=== PATIENT | female | born 1995 | race Two or more races ===

== ENCOUNTER 2024-11-26 13:47 | Observation (INO) | payer MEDICAID ==
--- NOTE | 2024-11-26 14:32 | DVH ---
BIOPHYSICAL PROFILE HISTORY: gdma1 Comparison Study: None TECHNIQUE: Multiple real-time grayscale sonographic images through the gravid uterus of the fetus wi th duplex Doppler color flow and M-mode spectral analysis FINDINGS: BIOPHYSICAL PROFILE: breathing score: 2 movement score: 2 tone score: 2 Quantitative DELFIN score: 2 (DELFIN: 18.2 Cm.) Total score: 8 The cervix is not visualized Single live fetus in cephalic presentation. heart rate beats per minute. Grade 1, anterior placenta without previa or abruption IMPRESSION: Biophysical profile score: 8
--- NOTE | 2024-11-26 15:53 | DVHDS2 ---
Physician Discharge Progress N Final Diagnosis: GDM Operations or Procedures: Operations or Procedures NST,SONO Condition on Discharge: Good Disposition: Home Discharge Instructions: Diet: Consistent carbohydrate Activity: No Restrictions, As Tolerated Follow Up/Referral: [facility] on Tuesday[facility] at 1400 for NST/BPP Medications: NA Follow Up Care: Specialist: 3D Discharge Statement: "Patient was advised to return to the ER or call 911 if any headaches, dizz iness, shortness of breath, chest pain, abdominal pain, bleeding, fevers, or worsening of medical condition. Patient was counseled about treatment plan, medications, possible side effects, patientverbalized understanding. All questions were answered to the best of my ability. This discharge took greater then 30 minutes in planning, reviewing documentation, counseling the patient, and discussing with other team members." Visit Coding OBGYN Date of Service: Nov 26, 2024 Billing Provider: JOEY YI DO NUCLEAR MEDICAL TECH Common Visit Codes: 93726-[id number] INP/OBS CARE (HIGH) NUCLEAR MEDICAL TECH Procedure Codes: 53434-32- NON-STRESS TEST JOEY YI DO Nov 26, 2024 15:53
== END 2024-11-26 15:27 | disposition home or self-care (01) ==
LOC: UNDOADMOB 13:47 → LDRP 13:47 → UNDODISOB 15:27
PROVIDERS: ADMIT Obstetrics & Gynecology; ATTEND Obstetrics & Gynecology
DX: O24.419 Gestational diabetes mellitus in pregnancy, unspecified control (principal); Z98.890 Other specified postprocedural states; Z79.899 Other long term (current) drug therapy; Z3A.34 34 weeks gestation of pregnancy
CPT/HCPCS: 59025; 76819; 81002; 82948; 82962; 94760; G0378

== ENCOUNTER 2024-12-03 10:21 | Observation (INO) | payer MEDICAID ==
--- NOTE | 2024-12-03 15:53 | DVH ---
BIOPHYSICAL PROFILE HISTORY: gdma1 TECHNIQUE: Multiple transabdominal real-time grayscale sonographic images through the gravid uterus of the fetus with duplex Doppler color flow and M-mode spectral analysis FINDINGS: BIOPHYSICAL PROFILE: breathing score: 2 movement score: 2 tone score: 2 Quantitative DELFIN score: 2 (DELFIN: 14.2 Cm.) Total score: 8/8 The cervix not measured Single live fetus in cephalic presentation. heart rate 141 beats per minute. Anterior Grade 2 placenta without previa or abruption Single live fetus at 35 weeks 6 days Biophysical profile score 8/8 corresponding to an GONZALEZ of 01/01/2025 Estimated weight not measured g IMPRESSION: 1. Biophysical profile score: 8/8 2. Possible nuchal cord.
--- NOTE | 2024-12-03 23:20 | DVHDS2 ---
Discharge Summary Date of Admission Dec 03, 2024 at 14:24 Date of Discharge: Dec 03, 2024 Admitting Diagnosis GDM A1 Wounds: 35 and 6 days Labs/Diagnostic Data: Laboratory Results Test 12/03/24 14:52 POC Glucose 74 mg/dl (70-106) Brief Hx & Hospital Course: NST ultrasound Consults/Reason for consult NST ultrasound Operations or Procedures None Condition at Discharge: Good Final Diagnosis/Problems List 35 6/7 GDM A1 Discharge Disposition: Home Discharge Instruct/Medications Diet: Consistent carbohydrate Activity: No Restrictions, As Tolerated Activity comment: Kick Discharge Statement: "Patient was advised to return to the ER or call 911 if any headaches, dizziness, shortness of breath, chest pain, abdominal pain, bleeding, fevers, or worsening of medical condition. Patient was counseled about treatment plan, medications, possible side effects, patientverbalized understanding. All questions were answered to the best of my ability. This discharge took greater then 30 minutes in planning, reviewing documentation, counseling the patient, and discussing with other team members." ASSESSMENT ASSESSMENT Assessment Visit Coding OBGYN Date of Service: Dec 03, 2024 Billing Provider: SANDRA REILLY DO PATROL POLICE SERGEANT Common Visit Codes: 91624-MDP/OBS SAME DATE (MOD), 67085-DAE/OBS SAME DATE (HIGH), 33885-RCC/OBS DISCH DAY <30MIN PATROL POLICE SERGEANT Procedure Codes: 97442-80- NON-STRESS TEST SANDRA REILLY DO Dec 03, 2024 23:20
== END 2024-12-03 15:57 | disposition home or self-care (01) ==
LOC: UNDOADMOB 14:24 → LDRP 14:24 → UNDODISOB 15:57
PROVIDERS: ADMIT Obstetrics & Gynecology; ATTEND Obstetrics & Gynecology
DX: O24.419 Gestational diabetes mellitus in pregnancy, unspecified control (principal); Z98.890 Other specified postprocedural states; Z79.899 Other long term (current) drug therapy; Z3A.35 35 weeks gestation of pregnancy
CPT/HCPCS: 59025; 76819; 82948; 82962; 94760; G0378

== ENCOUNTER 2024-12-10 06:47 | Observation (INO) | payer MEDICAID ==
--- NOTE | 2024-12-10 15:57 | DVH ---
BIOPHYSICAL PROFILE HISTORY: GDMA1 TECHNIQUE: Multiple transabdominal real-time grayscale sonographic images through the gravid uterus of the fetus with duplex Doppler color flow and M-mode spectral analysis FINDINGS: BIOPHYSICAL PROFILE: breathing score: 2 movement score: 2 tone score: 2 Quantitative DELFIN score: 17.66 (DELFIN: 5.26 Cm.) Total score: 8/8 The cervix Single live fetus in presentation. heart rate 136 beats per minute. Anterior Grade 2 placenta without previa or abruption Single live fetus at 36 weeks 6 days Biophysical profile score 8/8 corresponding to an GONZALEZ of 01/01/2025 Estimated weight calculi g IMPRESSION: 1. Biophysical profile score: 8/8
--- NOTE | 2024-12-11 02:44 | DVHDS2 ---
Discharge Summary Date of Admission December 10, 2024 at 15:00 Date of Discharge: December 10, 2024 Admitting Diagnosis 36 wks GDM A2 Brief Hx & Hospital Course: NST US reassuring Condition at Discharge: Good Final Diagnosis/Problems List same Discharge Disposition: Home Discharge Instruct/Medications Diet: Consistent carbohydrate Activity: Light activity Activity comment: kick counts labor precautions Follow Up/Referral: as scheduled Discharge Statement: "Patient was advised to return to the ER or call 911 if any headaches, dizziness, shortness of breath, chest pain, abdominal pain, bleeding, fevers, or worsening of medical condition. Patient was counseled about treatment plan, medications, possible side effects, patientverbalized understanding. All questions were answered to the best of my ability. This discharge took greater then 30 minutes in planning, reviewing documentation, counseling the patient, and discussing with other team members." ASSESSMENT ASSESSMENT Assessment Visit Coding OBGYN Date of Service: December 10, 2024 Billing Provider: SANDRA REILLY DO PRINTING MACHINE OPERATOR Common Visit Codes: 37250-JPM/OBS SAME DATE (LOW), 28265-WMS/OBS SAME DATE (MOD), 45380-UXL/OBS SAME DATE (HIGH) PRINTING MACHINE OPERATOR Procedure Codes: 01475-92- NON-STRESS TEST SANDRA REILLY DO December 11, 2024 02:44
== END 2024-12-10 16:21 | disposition home or self-care (01) ==
LOC: LDRP 15:00 → UNDOADMOB 15:00 → LDRP 15:09 → UNDODISOB 16:21
PROVIDERS: ADMIT Obstetrics & Gynecology; ATTEND Obstetrics & Gynecology
DX: O24.419 Gestational diabetes mellitus in pregnancy, unspecified control (principal); Z98.890 Other specified postprocedural states; Z79.899 Other long term (current) drug therapy; Z3A.36 36 weeks gestation of pregnancy
CPT/HCPCS: 59025; 76819; 81002; 82948; G0378

== ENCOUNTER 2024-12-17 10:19 | Inpatient (IN) | payer MEDICAID ==
[~2024-12-17] VITALS: Ht 157.5 cm; Wt 81.6 kg
[2024-12-18] MEDS ORDERED: PENICILLIN G POT 5MIL/D5 50ML 50 ML IV ONE (01:30)
[2024-12-18] MEDS ORDERED: NALBUPHINE HCL 10 MG/1ml INJECTION IV PRN (01:30)
[2024-12-18] MEDS ORDERED: LIDOCAINE 2%HCL (LOCAL ANESTH.) INJ 20ML MDV IJ PRN (01:30)
[2024-12-18 01:53] LABS: Basophils # (auto) 0.1 10 ^3/uL (0-0.2); Basophils % (auto) 0.9 % (0.0-2.0); Eosinophils # (auto) 0.1 10 ^3/uL (0-0.8); Eosinophils % (auto) 1.2 % (0.0-7.0); Hematocrit 35.1 % (36.0-46.0); Hemoglobin 11.8 g/dL (12.2-16.2); Lymphocytes # (auto) 1.8 10 ^3/uL (0.4-5.4); Lymphocytes % (auto) 29.3 % (10.0-50.0); Mean Corpuscular Hemoglobin 30.2 pg (28.0-32.0); Mean Corpuscular Hgb Conc. 33.5 g/dL (32.0-36.0); Mean Corpuscular Volume 90.1 fL (80.0-100.0); Monocytes # (auto) 0.5 10 ^3/uL (0-1.3); Monocytes % (auto) 8.6 % (0.0-12.0); Neutrophils # (auto) 3.7 10 ^3/uL (1.6-8.6); Nucleated Red Blood Cells % 0.1 %; Platelet Count (auto) 194 10^3/uL (140-450); Red Cell Distribution Width 15.4 % (11.8-14.3); White Blood Cell 6.1 10^3/uL (4.4-10.8)
[2024-12-18 02:04] LABS: Urine Bacteria FEW /hpf (None Seen); Urine Blood 1+ /uL (Negative); Urine Clarity Turbid (Clear); Urine Color Yellow (Yellow); Urine Mucus FEW (None Seen); Urine Protein, UAD 1+ (Negative); Urine Specific Gravity 1.036 (1.001-1.035); Urine Squamous Epithelial Cell MANY /hpf (<5); Urine Urobilinogen 3 mg/dL (Negative); Urine WBC 2 /HPF (0-5)
[2024-12-18 02:07] LABS: INR 0.89 (0.9-1.15); Partial Thromboplastin Time 26.9 SEC (24.5-34.5); Prothrombin Time 9.5 sec (9.3-11.8)
[2024-12-18 02:08] LABS: Barbiturate Scree,Urine Neg (NEGATIVE)
[2024-12-18 02:09] LABS: Amphetamine Screen, Urine Neg (NEGATIVE); Benzodiazephine Screen, Urine Neg (NEGATIVE); Cannabinoid Screen, Urine Neg (NEGATIVE); Cocaine Screen, Urine Neg (NEGATIVE); Opiate Scree,Urine Neg (NEGATIVE); Phencyclidine Screen, Urine Neg (NEGATIVE)
[2024-12-18 02:11] LABS: Alanine Aminotransferase 12 U/L (7-40); Anion Gap 11 (5-15); Aspartate Aminotransferase 22 U/L (13-40); BUN/Creatinine Ratio 15.8 (10.0-20.0); Blood Urea Nitrogen 9 mg/dL (9-23); Glucose 88 mg/dL (74-106); Potassium 3.9 mmol/L (3.5-5.1); Sodium 138 mmol/L (136-145); Total Protein 6.8 g/dL (5.7-8.2)
[2024-12-18 02:12] LABS: Bilirubin, Total 0.3 mg/dL (0.2-1.0)
[2024-12-18 02:16] LABS: Alkaline Phosphatase 134 U/L (46-116); Carbon Dioxide 19 mmol/L (20-31); Chloride 108 mmol/L (98-107)
[2024-12-18] MEDS: NALOXONE HCL 0.4 MG/ML VIAL IV ONE (02:45)
[2024-12-18] MEDS: ePHEDrine SULFATE 50 MG/ML AMP IV ONE (02:45)
[2024-12-18] MEDS: PHISODERM TOP SOLN 240ML BTL TOP PRN (02:58)
[2024-12-18] MEDS: WITCH HAZEL-GLYCERIN PAD TOP PRN (02:58)
[2024-12-18] MEDS: DERMOPLAST 60ML BOTTLE TOP PRN (02:58)
[2024-12-18] MEDS ORDERED: LACT. RINGERS/OXYTOCIN 20UNITS 1,000 ML IV SCH (03:00)
[2024-12-18] MEDS: fentaNYL CITRATE 100 MCG/2 ML VL IV ONE (03:52)
[2024-12-18] MEDS: LACTATED RINGER'S 1,000 ML IV SCH (03:53)
[2024-12-18] MEDS: ROPIVACAINE HCL 200 ML ONE (03:53)
--- NOTE | 2024-12-18 03:54 | EPIDURAL ---
Anesthesia Procedural Note - Epidural Informed consent obtained?: Yes Medication Administered: Fentanyl 100 mcg Sterile prept drape: Yes Spinal level of insertion: L4-L5 Test dose of lidocaine & Epine: Negative Infusion started: Yes Start time: 03:08 End time: 03:28 Procedure description Procedure description: Called for labor epidural. History taken, chart reviewed, patient examined at 0308 (BP150/90 HR 90 spO2 99). Patient is , here in spontaneous labor, requesting epidural. Informed consent for CSE obtained. Sitting position, sterile prep and drape. Time out done at 0312. L4-5 space infiltrated with 1% lido. Epidural needle placed with PO at 6cm. 25G spinal needle +clear CSF at 0318. 15mcg fentanyl given IT (BP 126/81 HR 92 spO2 99). Epidural catheter secured at 11cm. Aspiration and test dose (1.5% lido with epi) negative at 0320 (BP 133/82 HR 85 spO2 99). 85mcg fentanyl given via epidural (BP 135/86 HR 81 spO2 98). Patient reports pain relief. 0.2% ropivacaine infusion started at 0328 (BP 128/72 HR 82 spO2 99). Patient has SROM while lying back down. Will follow as needed. NIGEL GRACIA MD December 18, 2024 03:54
[2024-12-18] MEDS: LACT. RINGERS/OXYTOCIN 20UNITS 500 ML IV ONE ×2 (05:14→05:41)
[2024-12-18] MEDS ORDERED: PENICILLIN G POTASSIUM 2,500,000 UNITS in D5W 5% 50 ML IV SCH (05:30)
--- NOTE | 2024-12-18 05:40 | LDN2 ---
Labor and Delivery Note Date 12/18/24 Age 29 2 Para 2 AB n/a EDC 01/01/2025 EGA 38.0 weeks Diagnosis Active labor then A1 GDM Vaginal Delivery: VTX Vacuum Assisted: No Placenta: Spontaneous Sex: Male Weight Pending Apgars 8/9 Nuchal Cord Transected: No Amniotic Fluid: Meconium Stained, Thin Anesthesia Epidural anesthesia Episiotomy: No Extension: No Repaired with 2-0 Chromic suture EBL QBL: 300 mL Labs Blood Bank 12/18/24 01:34: Blood Type O NEGATIVE Complications n/a Conditions Stable Shoe Handler Dr. Beck Comments/Significant Med Nicol At 0456 this 29yo now delivered a viable Male infant by w/ APGARS 8/9. LOP. placed skin to skin on pts chest. Cord clamped and cut after pulsation ceased. Cord blood sent. Intact 3-vessel cord placenta delivered spontaneously, Richard. Pitocin IV bolus started. Placenta sent to pathology. Patient had epidural anesthesia. Cervix/vagina inspected (intact) and second degree perineal laceration present which was repaired with 2-0 Chromic suture. Rectal mucosa and sphincter intact. Rectal exam performed, WNL, not involved. Fundus at U, firm, midline, and light lochia. QBL 300ml. VSS. Count correct x2. Patient to care and baby to couplet care, both stable. Visit Coding OBGYN Date of Service: December 18, 2024 Billing Provider: SANDRA REILLY DO CUSTODIAL AIDE Common Visit Codes: PROCEDURE ONLY CUSTODIAL AIDE Procedure Codes: 51257-CRU DEL INCLUDING GRACIA WOODY MDWF December 18, 2024 05:40
[2024-12-18] MEDS ORDERED: ONDANSETRON ODT 4 MG TAB PO PRN (05:45)
--- NOTE | 2024-12-18 05:54 | DVHHP2 ---
OB CC & HPI Date Date of Admission: December 18, 2024 Patient Identification: : 2 Para: 1 EDC: January 01, 2025 EGA: 38.0 weeks Chief Complaints: Reason for admission: active labor Admission Nurse Assessment Rev: Yes History of Present Complaints 29yo IUP @ 38 weeks presents to labor and delivery for active labor. Pt reports painful contractions every 2 minutes and is requesting an epidural. Pt denies LOF/VB/DURANT/visual disturbances, and endorses + movement. PNC: routine care at [facility] clinic, dating based on LMP c/w 1st trimester US, GBS negative, A1GDM OB hx: Uncomplicated in 2022 Past Medical History Cardiac: No pertinent Hx Pulmonary: No pertinent Hx Central Nervous System: No pertinent Hx GI: No pertinent Hx Hemotology/Oncology: No pertinent Hx Hepatobiliary: No pertinent Hx Psychiatric: No pertinent Hx Musculoskeletal: No pertinent Hx Rheumotologic: No pertinent Hx Infectious Disease: No peritnent Hx ENT: No pertinent Hx Renal/: No pertinent Hx Endocrine: No pertinent Hx Dermatology: No pertinent Hx Past Surgical History: No pertinent Hx OB History OB History Care: Good Care Ultrasounds: Normal mid trimester US Obstetrical Complications: Gestational Diabetes Medical Complications: None Allergies: Coded Allergies: NO KNOWN ALLERGIES (Unverified , 12/18/24) Allergies NKDA Home Meds No Active Prescriptions or Reported Meds Home Meds PNV Current Medications Current Medications Medications (Trade) Dose Ordered Sig/Patrick Route PRN Reason Start Time Stop Time Status Last Admin Lactated Ringer's 1,000 ml @ 125 mls/hr Q8H IV 12/18/24 01:30 12/18/24 03:53 Nalbuphine HCl (Nubain) 10 mg Q4HP PRN IV MODERATE PAIN (4-6 PAIN SCALE) 12/18/24 01:30 Witch Yelena (Tucks) 1 pad PRN PRN TOP PERINEAL AREA DISCOMFORT 12/18/24 01:30 12/18/24 02:58 Sodium Lauryl Sulfate (Phisoderm) 240 ml PRN PRN TOP PERINEAL AREA DISCOMFORT 12/18/24 01:30 12/18/24 02:58 Benzocaine (Dermoplast) 1 applic PRN PRN TOP PERINEAL AREA DISCOMFORT 12/18/24 01:30 12/18/24 02:58 Lidocaine HCl (Xylocaine) 20 ml ONCE PRN IJ PERINEAL AREA DISCOMFORT 12/18/24 01:30 Penicillin G Potassium 3217803 units/Dextrose 50 ml @ 100 mls/hr Q4H IV 12/18/24 05:30 12/18/24 03:56 DC Oxytocin 1,000 ml @ 6 ml/hr Q24H IV 12/18/24 03:00 Family & Social History Family/Social History Past Family/Social History: Pt denies family hx Blood Type: O- Rubella: immune RPR/VDRL: Negative GBS Status: Negative HBsAG: Negative Review of Systems Constitutional: No symptom reported Ears, Nose, & Throat: No symptom reported Eyes: No symptom reported Pulmonary/Respiratory: No symptom reported Cardiovascular: No symptom reported Gastrointestinal: No symptom reported Genitourinary: No symptom reported Musculoskeletal: No symptom reported Skin: No symptom reported Psychiatric: No symptom reported Endocrine: No symptom reported Hemotologic/Lymphatic: No symptom reported OB Admission Exam Physical Exam Vitals: Vital Signs Date Time Temp Pulse Resp B/P (MAP) Pulse Ox O2 Delivery O2 Flow Rate FiO2 12/18/24 03:52 134/85 HEENT: TMs Normal, Fontanelles Normal, Nasal Mucosa Normal, Eyes non-injected, Oropharynx Normal, PERRLA, Moist Membranes, EOMI Heart: Rhythm Normal Lungs: Clear Abdomen: Gravid Extremities: Normal Reflexes: Normal Pelvic Exam: Done by primary RN Cervical Dilatation: 4cm Effacement: Other (70%) Station: -2 Membranes: Intact Heart Rate: 140's Accelerations: Accelerations Present Decelerations: No Decelerations Short Term Variability: Present Landmen Variability: Average (6-25) Contractions on Admission: < 5 Minutes Apart Date/Time Contractions Began: 12/17/2024 @ 1999 Frequency of Contractions: 2-3 Duration: 70 Intensity: Moderate OB Plan Plan Admitting Diagnosis: 29yo IUP@38.0wks Active Labor A1 GDM RH negative Category I EFM Intact Membranes GBS negative Plan: Expectant Management Other Plan: P: Admit to L&D Informed consent obtained Expectant management monitoring per order Routine labs ordered Pain mgmt via epidural Frequent position changes in of bed encouraged Limit SVE unless necessary Intrauterine resuscitation PRN Anticipate Visit Coding OBGYN Date of Service: December 18, 2024 Billing Provider: SANDRA REILLY DO PROVIDER SCRIBE Common Visit Codes: [id number] INP/OBS CARE (MOD) PROVIDER SCRIBE Procedure Codes: 36917-99- NON-STRESS TEST GRACIA WOODY STDT MDWF December 18, 2024 05:54
[2024-12-18] MEDS: IBUPROFEN 600 MG TAB PO PRN (10:39)
[2024-12-18 11:01] VITALS: BP 116/69; PULSE 84; RESP 18; TEMP 98.1; O2SAT 97
[2024-12-18 15:04] VITALS: BP 119/76; PULSE 76; RESP 18; TEMP 98.2; O2SAT 97
[2024-12-18 19:00] VITALS: BP 118/73; PULSE 76; RESP 16; TEMP 98.6; O2SAT 97
[2024-12-18] MEDS: ACETAMINOPHEN 325 MG TAB PO PRN (21:49)
[2024-12-18] MEDS: DOCUSATE SOD 100 MG CAP PO SCH (22:49)
[2024-12-18 23:00] VITALS: BP 109/65; PULSE 72; RESP 16; TEMP 98.5; O2SAT 98
--- NOTE | 2024-12-19 00:49 | DVHPN2 ---
Progress Note Date Seen: December 19, 2024 Subjective S: bleeding is less, eating food without issues, denies lightheaded/dizziness, pain well controlled with oral medications, no concerns with urinating, passing flatus, Bowel movement yesterday, ambulating well, well vital signs Vital Sign Date Time Temp Pulse Resp B/P (MAP) Pulse Ox O2 Delivery O2 Flow Rate FiO2 12/18/24 23:00 98.5 72 16 109/65 (80) 98 98.5 12/18/24 08:30 Room Air Total Intake and Output 12/18/24 12/18/24 12/19/24 15:00 23:00 07:00 Output Total 200 ml 500 ml Balance -200 ml -500 ml medications Current Medications Medications Dose Ordered Sig/Patrick Route Start Time Stop Time Status Last Admin Dose Admin Nitin Kirk 1 pad PRN PRN TOP 12/18/24 01:30 12/18/24 02:58 1 PAD Sodium Lauryl Sulfate 240 ml PRN PRN TOP 12/18/24 01:30 12/18/24 02:58 240 ML Benzocaine 1 applic PRN PRN TOP 12/18/24 01:30 12/18/24 02:58 1 APPLIC Ibuprofen 600 mg Q6HP PRN PO 12/18/24 05:45 12/18/24 18:18 600 MG Acetaminophen 650 mg Q4HP PRN PO 12/18/24 05:45 12/18/24 21:49 650 MG Ondansetron HCl 4 mg Q4HPRN PRN PO 12/18/24 05:45 Docusate Sodium 200 mg HS PO 12/18/24 22:00 12/18/24 22:49 200 MG laboratory and microbiology Laboratory Tests 12/18/24 01:34 Test 12/18/24 01:34 Range/Units Serum Glucose 88 74-106 mg/dL Objective O: VSS Chest: heart sounds normal and lung sounds clear bilaterally Abd: soft, non-tender, fundus at U/firm/midline, active bowel sounds, no rebound or guarding Perineum: sutures intact, edges well approximated, no erythema/edema noted Ext: Non-tender, No edema, 2+ BLE DTRs Lochia: minimal See lab results Problems(with codes): (1) (normal spontaneous vaginal delivery) (2) First degree perineal laceration Assessment/Plan A: 29yo now PPD#2 s/p Rh negative Rubella Immune Pain control with PO medications P: Infant blood type result pending, D/C home later today when result comes back. Discussed HCV AB positive lab result with pt and that HCV RNA follow-up lab was ordered to confirm if it is a current or past infection, results pending. Rx sent to pharmacy precautions and preeclampsia warning signs reviewed F/U with [facility] office in 2 wks Plan discussed with: Patient, Spouse Visit Coding OBGYN Date of Service: December 19, 2024 Billing Provider: JANAK DOLAN CNM SSDS MK 2 ADVANCED OPERATOR Common Visit Codes: [id number] INP/OBS CARE(MOD) GRACIA WOODY STDT MDWF December 19, 2024 00:49
--- NOTE | 2024-12-19 00:53 | DVHDS2 ---
Obstetrics Discharge Summary Obstetrics Discharge Summary Date of Admission: December 18, 2024 Date of Discharge: December 19, 2024 Reason For Admission: Onset of Labor Procedures: NST, Ultrasound Intrapartum Procedures: Spontaneous vaginal deliv Procedures: Hct/date: (12/18/2024), Hgb/date: (12/18/2024) Operative Complicat: Laceration (1st degree Perineal) Discharge Diagnosis: Term -Delivered Discharge Information: Activity (as tolerated, no heavy lifting and nothing in the vagina for 6 weeks), Diet (Routine), Medications (RX sent), Instructions (Routine), Discharge to (Home), Accompanied by (partner), Discarge date (12/17/2024) Visit Coding OBGYN Date of Service: December 19, 2024 Billing Provider: JANAK DOLAN CNM ROAD FREIGHT FIRER Common Visit Codes: 54617-GVA/OBS DISCH DAY <30MIN GRACIA WOODY MDWF December 19, 2024 00:53
[2024-12-19] MEDS ORDERED: PREN-96 PO (02:00)
[2024-12-19] MEDS ORDERED: IBU600T PO (02:00)
[2024-12-19] MEDS ORDERED: DOCU-265 PO (02:00)
[2024-12-19 03:00] VITALS: BP 123/75; PULSE 84; RESP 16; TEMP 98.7; O2SAT 97
[2024-12-19 07:00] VITALS: BP 105/55; PULSE 80; RESP 16; TEMP 98.6; O2SAT 95
[2024-12-19] MEDS: RHO (D) IMMUNE GLOBULIN 300 MCG INJ IM ONE (09:03)
[2024-12-19 09:19] LABS: Basophils # (auto) 0 10 ^3/uL (0-0.2); Basophils % (auto) 0.3 % (0.0-2.0); Eosinophils # (auto) 0.1 10 ^3/uL (0-0.8); Hematocrit 32.6 % (36.0-46.0); Hemoglobin 10.9 g/dL (12.2-16.2); Lymphocytes # (auto) 2.2 10 ^3/uL (0.4-5.4); Lymphocytes % (auto) 31.3 % (10.0-50.0); Mean Corpuscular Hemoglobin 30.2 pg (28.0-32.0); Mean Corpuscular Hgb Conc. 33.6 g/dL (32.0-36.0); Mean Corpuscular Volume 90.1 fL (80.0-100.0); Monocytes # (auto) 0.6 10 ^3/uL (0-1.3); Monocytes % (auto) 7.8 % (0.0-12.0); Neutrophils # (auto) 4.2 10 ^3/uL (1.6-8.6); Neutrophils % (auto) 59.6 % (37.0-80.0); Platelet Count (auto) 159 10^3/uL (140-450); Red Blood Cells 3.61 10^6/uL (4.0-5.20); Red Cell Distribution Width 15.5 % (11.8-14.3); White Blood Cell 7.1 10^3/uL (4.4-10.8)
[2024-12-19 11:00] VITALS: BP 111/65; PULSE 83; RESP 16; TEMP 97.8; O2SAT 97
[2024-12-19 15:00] VITALS: BP 116/77; PULSE 77; RESP 18; TEMP 98.6; O2SAT 97
[2024-12-19 18:06] VITALS: BP 117/78; PULSE 76; RESP 16; TEMP 98.6; O2SAT 97
== END 2024-12-19 18:06 | disposition home or self-care (01) | DRG 560 ==
LOC: LDRP 23:26 → OBSVTOIN 12-18 01:12 → LDRP 12-18 01:34
PROVIDERS: ADMIT Obstetrics & Gynecology; ATTEND Obstetrics & Gynecology
PROC: 10E0XZZ Delivery of Products of Conception, External Approach (ICD-10-PCS; principal; 2024-12-18)
PROC: 0KQM0ZZ Repair Perineum Muscle, Open Approach (ICD-10-PCS; 2024-12-18)
PROC: 3E0R3BZ Introduction of Anesthetic Agent into Spinal Canal, Percutaneous Approach (ICD-10-PCS; 2024-12-18)
PROC: 00HU33Z Insertion of Infusion Device into Spinal Canal, Percutaneous Approach (ICD-10-PCS; 2024-12-18)
DX: O77.0 Labor and delivery complicated by meconium in amniotic fluid (principal); Z37.0 Single live birth; O24.420 Gestational diabetes mellitus in childbirth, diet controlled; O70.1 Second degree perineal laceration during delivery; Z3A.38 38 weeks gestation of pregnancy
CPT/HCPCS: 36415; 59025; 59409; 62282; 80053; 80307; 81001; 81002; 82948; 82962; 85025; 85610; 85730; 86780; 86803; 86850; 86870; 86900; 86901; 90384; 94760; 96360; 96361; 96365; G0378; J2590; J7060

== ENCOUNTER 2025-06-26 06:26 | Day surgery (SDC) | payer MEDICAID ==
[2025-06-25 15:33] LABS: Urine Protein, UAD Negative (Negative)
[2025-06-25 15:36] LABS: Hematocrit 42.3 % (36.0-46.0); Hemoglobin 13.9 g/dL (12.2-16.2); Mean Corpuscular Hemoglobin 28.5 pg (28.0-32.0); Mean Corpuscular Volume 86.9 fL (80.0-100.0)
[2025-06-25 15:41] LABS: INR 1.02 (0.9-1.15); Partial Thromboplastin Time 28.9 SEC (24.5-34.5); Prothrombin Time 10.8 sec (9.3-11.8)
[2025-06-25 16:10] LABS: Alanine Aminotransferase 13 U/L (7-40); Alkaline Phosphatase 108 U/L (46-116); Anion Gap 10 (5-15); Blood Urea Nitrogen 10 mg/dL (9-23); Calcium 9.6 mg/dL (8.7-10.4); Carbon Dioxide 25 mmol/L (20-31); Potassium 4.4 mmol/L (3.5-5.1); Sodium 143 mmol/L (136-145)
[2025-06-25 16:11] LABS: Albumin 4.8 g/dL (3.2-4.8); Bilirubin, Total 0.5 mg/dL (0.2-1.0); Chloride 108 mmol/L (98-107); Total Protein 8.4 g/dL (5.7-8.2)
[2025-06-25 16:13] LABS: BUN/Creatinine Ratio 13.0 (10.0-20.0); Glucose 74 mg/dL (74-106)
[2025-06-25 18:57] LABS: RBC Morphology Normal; Total Cells Counted 100.0 (100)
[~2025-06-26] VITALS: Ht 157.5 cm; Wt 72.6 kg
[2025-06-26] MEDS ORDERED: ceFAZolin 2 GM/D5W50ml 50 ML IV ONE (06:37)
[2025-06-26] MEDS ORDERED: MIDAZOLAM HCL 2MG/2ML 2ml VIAL (1mg/ml) ONE (07:06)
[2025-06-26] MEDS ORDERED: fentaNYL CITRATE 100 MCG/2 ML VL ONE (07:06)
[2025-06-26] MEDS ORDERED: PROPOFOL 10 MG/ML 20 ML IV ONE (07:11)
[2025-06-26] MEDS ORDERED: ONDANSETRON HCL 4 MG/2 ML VIAL ONE (07:11)
[2025-06-26] MEDS ORDERED: LIDOCAINE 2% (LOCAL ANESTH.) PF 5ml SDV ONE (07:11)
[2025-06-26] MEDS ORDERED: ROCURONIUM 10MG/ML 10ML VIAL IV ONE (07:11)
[2025-06-26] MEDS ORDERED: VASOPRESSIN 20 UNIT/ML ONE (07:13)
[2025-06-26] MEDS ORDERED: ROPIVACAINE 0.5% (5MG/ML) 20ML AMPULE IJ ONE (07:13)
[2025-06-26] MEDS ORDERED: HYDROmorphone HCL 2 MG/ML VL/or syr ONE (07:44)
[2025-06-26] MEDS: LIDOCAINE W/ EPINEPHRINE 1% 20ML VIAL ONE (07:47)
[2025-06-26] MEDS: BUPIVACAINE 0.5% P/F INJ 10 ML VIAL ONE (07:47)
[2025-06-26] MEDS ORDERED: KETOROLAC TROMETH 30 MG/ML 1ML VIAL ONE (08:09)
[2025-06-26] MEDS ORDERED: SUGAMMADEX 200mg/2ml Vial (100MG/ML) IV ONE (08:10)
[2025-06-26 08:20] VITALS: PULSE 79; RESP 12; O2SAT 100
[2025-06-26] MEDS ORDERED: ACE3T PO (08:26)
[2025-06-26 08:28] VITALS: PULSE 79; RESP 12; TEMP 97.1; O2SAT 100
[2025-06-26 08:38] VITALS: PULSE 69; RESP 13; O2SAT 98
[2025-06-26] MEDS ORDERED: METOCLOPRAMIDE HCL 5MG/ml INJ 2ml VIAL IV PRN (08:45)
[2025-06-26] MEDS ORDERED: ONDANSETRON HCL 4 MG/2 ML VIAL IV PRN (08:45)
[2025-06-26] MEDS ORDERED: fentaNYL CITRATE 100 MCG/2 ML VL IV PRN (08:45)
[2025-06-26] MEDS ORDERED: hydrALAZINE HCL 20 MG/ML VL IV PRN (08:45)
[2025-06-26] MEDS ORDERED: HYDROmorphone HCL 2 MG/ML VL/or syr IV PRN ×2 (08:45)
[2025-06-26] MEDS ORDERED: FLUMAZENIL 0.1 MG/ML INJ 10ML MDV IV PRN (08:45)
[2025-06-26] MEDS ORDERED: NALOXONE HCL 0.4 MG/ML VIAL IV PRN (08:45)
--- NOTE | 2025-06-26 09:09 | DVHOP ---
DATE OF SURGERY: 06/26/2025 PREOPERATIVE DIAGNOSIS: Umbilical hernia. POSTOPERATIVE DIAGNOSIS: Umbilical hernia. SURGEON: Kevin Iraheta MD. HORSE BREAKER: Roberto Dominguez NP. ANESTHESIA: General endotracheal. ANESTHESIOLOGIST: Nurse powerhouse laborer. PROCEDURE: Repair of umbilical hernia. DESCRIPTION OF PROCEDURE: Under adequate anesthesia with the patient's skin prepped and draped, infiltrated with 0.25% Marcaine and 0.5% Xylocaine for postoperative analgesia. A midline incision was made around the umbilicus and extended through the subcutaneous tissues. The patient's fascia was extremely attenuated and the defect in the fascia measured approximately 2.5 cm in diameter. There was no fat or bowel incarcerated within the hernia defect. The fascia was grasped with Shalonda clamps and from the subcutaneous tissues. Minimal subcutaneous fat is present. Subsequently, the defect was repaired utilizing a 1-0 Prolene suture in a horizontal mattress, creating a crest of fascial tissue, which was then further approximated using interrupted nonabsorbable sutures, thus creating a double suture line. The wound was irrigated. Hemostasis was accomplished. Wound approximated using Monocryl sutures, Dermabond glue, and Steri-Strips. The patient remained stable throughout the procedure, left the operating room following an accurate needle and sponge count. Her , Kody Villar, was thoroughly informed at [phone]. Kevin Iraheta MD PF/MAXIMILIAN TID: [id number] RECEIPT: [id number]
[2025-06-26 09:25] VITALS: BP 114/75; PULSE 64; RESP 12; O2SAT 97
== END 2025-06-26 09:48 | disposition home or self-care (01) ==
LOC: SUR 06:26
PROVIDERS: ATTEND Surgery
DX: K42.9 Umbilical hernia without obstruction or gangrene (principal); Z79.899 Other long term (current) drug therapy
CPT/HCPCS: 36415; 49591; 80053; 81001; 84702; 85007; 85027; 85610; 85730; 86850; 86900; 86901; J0690; J1100; J1171; J1885; J2003; J2250; J2405; J2704; J2795; J3010; J3490